=== PATIENT | male | born 1960 | race Caucasian/White ===

== ENCOUNTER → 2018-10-22 | Outpatient (CLI) | payer OTHER ==
[~2018-10-22] MED LIST: REGADENOSON 0.4 MG/5 ML DISP.SYRIN. IV ONE
--- NOTE | 2018-10-22 12:24 | CARD ---
MR#: [id number] Date of Study: 10/22/2018 Ordering Physician: BREANNA CANO, Referring Physician: BREANNA CANO, Tech: Aishwarya Lyon APPROVED REPORT EXAM: Two-dimensional and M-mode echocardiogram with Doppler and color Doppler. Other Information Quality : AverageHR: 74bpm INDICATION CAD RISK FACTORS Hypertension Hyperlipidemia Diabetes 2D DIMENSIONS Left Atrium(2D)3.1 (1.6-4.0cm)IVSd1.2 (0.7-1.1cm) Aortic Root(2D)3.0 (2.0-3.7cm)LVDd3.8 (3.9-5.9cm) LVOT Diameter2.1 (1.8-2.4cm)PWd1.1 (0.7-1.1cm) LVDs2.0 (2.5-4.0cm)FS (%) 46.3 % SV47.8 mlLVEF(%)78.4 (>50%) Aortic Valve AoV Peak Srinath.147.5cm/sAoV VTI31.5cm AO Peak GR.8.7mmHgLVOT Peak Srinath.125.5cm/s LVOT VTI 27.35cmAO Mean GR.5mmHg TANYA (VMAX)3.59wy0EYY (VTI)3.12cm2 Mitral Valve MV E Kloqsgoe06.7cm/sMV DECEL [id number] MV A Vzfhdtrj19.4cm/sMV MNM66jx E/A Ratio0.9MVA (PHT)4.36cm2 TDI E/Lateral E'7.6E/Medial E'11.0 Pulmonary Valve PV Peak Zekxfdyr222.1cm/sPV Peak Grad.6mmHg Tricuspid Valve TR P. Qxvsevva715ro/sRAP ORFBDDLF1ugDb TR Peak Gr.74cyMdEDEV81trKl Pulmonary Vein S1 Xtkxusmt15.2cm/sD2 Hcizjgwq85.8cm/s PVa daeklbhv772essn LEFT VENTRICLE The left ventricle is normal size. There is borderline to mild concentric left ventricular hypertroph y. The left ventricular systolic function is normal. The Ejection Fraction is 60%. There is normal LV segmental wall motion. RIGHT VENTRICLE The right ventricle is normal size. There is normal right ventricular wall thickness. The right ventr icular systolic function is normal. ATRIA The left atrium size is normal. The right atrium size is normal. The interatrial septum is intact wit h no evidence for an atrial septal defect or patent foramen ovale as noted on 2-D or Doppler imaging. AORTIC VALVE The aortic valve is thickened but opens well. Doppler and Color Flow revealed no significant aortic r egurgitation. There is no significant aortic valvular stenosis. MITRAL VALVE The mitral valve is thickened but opens well. There is no evidence of mitral valve prolapse. There is no mitral valve stenosis. Doppler and Color Flow revealed no mitral valve regurgitation noted. TRICUSPID VALVE The tricuspid valve is not well visualized. Doppler and Color Flow revealed no tricuspid valve regurg itation noted. There is no tricuspid valve stenosis. PULMONIC VALVE The pulmonic valve is not well visualized. Doppler and Color Flow revealed trace pulmonic valvular re gurgitation. GREAT VESSELS The aortic root is normal in size. The IVC was not visualized. PERICARDIAL EFFUSION There is no evidence of significant pericardial effusion. Critical Notification Critical Value: No <Conclusion> The left ventricular systolic function is normal. The Ejection Fraction is 60%. There is normal LV segmental wall motion. There is no evidence of significant pericardial effusion. Signed by : Breanna Cano, Electronically Approved : 10/22/2018 12:22:39
--- NOTE | 2018-10-22 14:08 | RAD ---
MR#: [id number] Date of Study: 10/22/2018 Ordering Physician: BREANNA MURRIETA Referring Physician: ANOOP CORRALES Tech: RT Nori Martinez) (N) APPROVED REPORT Test Type: Pharmacological Stress Nurse/Tech: Mel Krishnamurthy R.N. Test Indications: CAD Cardiac History: Diabetes, Family history, Hypertension, stent in 2014 Medications: See Electronic Medical Record Medical History: See Electronic Medical Record Resting ECG: NSR Resting Heart Rate: 77 bpm Resting Blood Pressure: 131/83mmHg Pretest Chest Pain: No chest pain Nurse/Tech Notes S1S2, lungs sound clear Consent: The procedure was explained to the patient in lay terms. Informed consent was witnessed. Darrius eout was entered into [employer]. History and Stress Test performed by Mel Krishnamurthy R.N. Pharm. Details Pharmacologic stress testing was performed using 0.4mg per 5ml of regadenoson given intravenously ove r 7-10 seconds. Stress Symptoms No chest pain or symptoms. POST EXERCISE Reason for Termination: Infusion complete Target HR: 136 Max HR: 109 bpm Max Blood Pressure: 137/77mmHg Blood Pressure response to exercise: Normal blood pressure response during stress. Chest Pain: No. Arrhythmia: Yes. occ PVC ST Change: No. INTERPRETATION Stress EKG Conclusion: Baseline EKG showed sinus rhythm. No ischemic changes at peak stress. No arr hythmias. Imaging Protocol IMAGE PROTOCOL: Rest Tc-99m/stress Tc-99m 1 day Rest: Stress: Viability: Radiopharm.Tc99m XdjwetfpqBa90n Sestamibi Dose10.3mCi 32.4mCi Duration 15min. 13min. Img Date 10/22/2018 10/22/2018 Inj-Img Zbef96zvj. 60min. Rest Admin Site:IV - Left HandAdministrator:RT Juan (Hazel)(N) Stress Admin Site: IV - Left HandAdministrator: CHARLIE Vitale STRESS DATA End Diast. Vol.76.0mlAv. Heart Rate94.0bpm End Syst. Vol.22.0mlCO Index BSA0.0L/min Myocardial Wuhz013.0gEject. Iszdrfpi23.0% Stress Rates Pk. Fill Rate4.58EDV/secLVtime Pk. Fill 167.41msec Pk. Empty Rate4.95ESV/secLVtime Pk. Vvhmr649.01msec 1/3 Pk. Fill0.97EDV/sec Stress Scores Regional WT1.00Summed WT9.00 Regional WM0.00Summed WM7.00 Study quality was good. Left Ventricular size was Normal at Rest and Stress. Lung uptake was . Left Ventricular ejection fraction is 71%. The rest and stress images show normal perfusion, normal contraction and thickening. LV Perf. Quant 17 Seg. SSS0.00 17 Seg. SRS1.00 17 Seg. SDS0.00 Stress Defect Extent (% LAD)0.00Rest Defect Extent (% LAD)0.00Rev. Defect Extent (% LAD)0.00 Stress Defect Extent (% LCX) 0.00Rest Defect Extent (% LCX)0.00Rev. Defect Extent (% LCX)0.00 Stress Defect Extent (% RCA)0.00Rest Defect Extent (% RCA)0.00Rev. Defect Extent (% RCA)0.00 Stress Defect Extent (% FAUSTO)0.00Rest Defect Extent (% FAUSTO)0.00Rev. Defect Extent (% FAUSTO)0.00 Conclusion 1. Regadenoson cardioisotope stress test did not show any evidence of ischemia or infarct. 2. Normal left ventricular systolic function with ejection fraction calculated at 71%. 3. Low risk for cardiac events. Signed by : Breanna Murrieta, Electronically Approved : 10/22/2018 14:06:51
== END | disposition home or self-care (01) ==
LOC: ECHO 08:26
PROVIDERS: ATTEND Internal Medicine Cardiovascular Disease
DX: I25.10 Atherosclerotic heart disease of native coronary artery without angina pectoris (principal); E11.9 Type 2 diabetes mellitus without complications; I10 Essential (primary) hypertension; E78.5 Hyperlipidemia, unspecified; Z82.49 Family history of ischemic heart disease and other diseases of the circulatory system
CPT/HCPCS: 78452; 93017; 93306; 96374; A9500; J2785